=== PATIENT | male | born 1985 | race African-American/Black ===

== ENCOUNTER 2022-09-25 20:22 | Emergency (ER) | payer SELFPAY ==
--- NOTE | ~2022-09-25 | XR_ITS ---
EXAMINATION: XR TIBIA AND FIBULA, LEFT CLINICAL INFORMATION: Pain COMPARISON: None TECHNIQUE: AP and lateral views of the left tibia and fibula were obtained. FINDINGS: No acute fracture or dislocation. Soft tissues are unremarkable. Visualized joint spaces are maintained. Ankle mortise is congruent. No tibiotalar joint effusion. XR/XR tibia fibula LT 2V IMPRESSION: No acute osseous abnormality.
--- NOTE | ~2022-09-25 | US_ITS ---
EXAMINATION: US extremity nonvascular gallegos CLINICAL INFORMATION: Reason for Exam possible gastroc rupture on the L COMPARISON: None. TECHNIQUE: Targeted ultrasound of the posterior left calf was performed utilizing a high frequency linear array transducer. FINDINGS: No interruption of gastrocnemius muscle fibers identified. No intramuscular fluid collection/hematoma or perimuscular fluid/edema identified. US/US extremity nonvascular gallegos IMPRESSION: No sonographic evidence of muscle tear or hematoma. If persistent clinical concern, consider MRI as felt clinically necessary.
[2022-09-25 20:23] VITALS: BP 140/81; PULSE 74; RESP 20; TEMP 36.8; O2SAT 95; BMI 39.0
--- NOTE | 2022-09-25 20:25 | ED.GENADULT ---
HPI - General Adult General Chief complaint: Extremity Injury, Lower <ALEENA Somers - Last Filed: 09/25/22 20:26> Stated complaint: Calf injury <ALEENA Somers - Last Filed: 09/25/22 20:26> Time Seen by Provider: 09/25/22 21:26 <ALEENA Somers - Last Filed: 09/25/22 20:26> Source: patient <Gabi Grullon MD - Last Filed: 09/25/22 22:01> Mode of arrival: wheelchair <Gabi Grullon MD - Last Filed: 09/25/22 22:01> Limitations: no limitations <Gabi Grullon MD - Last Filed: 09/25/22 22:01> History of Present Illness HPI narrative: Patient comes to the emergency room complaining of left calf pain. Patient states that prior to arrival, he was playing basketball, sprinting, states that he heard a loud popping noise coming from his calf. Since then, patient has not been able to bear weight on his left leg. Patient states that he has crutches and has been using them since this happened earlier today. Patient did not take any pain medication. It patient denies falling. Patient states that he has no knee pain or ankle pain. Patient does not have pain while he is laying down resting, but if he tries to bear weight, it is extremely painful <Gabi Grullon MD - Last Filed: 09/25/22 22:01> Related Data Home medications: Previous Rx's Medication Instructions Recorded cyclobenzaprine 10 mg tablet 10 mg PO TID PRN muscle spasm #10 09/25/22 tabs ibuprofen 600 mg tablet 600 mg PO Q8H PRN pain #20 tabs 09/25/22 <ALEENA Somers - Last Filed: 09/25/22 20:26> Allergies/adverse reactions: Allergies Allergy/AdvReac Type Severity Reaction Status Date / Time No Known Allergies Allergy Verified 09/25/22 20:28 <ALEENA Somers - Last Filed: 09/25/22 20:26> Review of Systems Review of Systems: Constitutional : No Weight loss, No Fever, No Chills, No Night Sweats, No Fatigue, No Malaise ENT/Mouth : No Hearing loss, No Ear Pain, No Nasal Congestion, No Sinus Pain, No Hoarseness, No sore throat, No Rhinorrhea, No Swallowing Difficulty Eyes: No Eye Pain, No Swelling, No Redness, No Foreign Body, No Discharge, No Vision Changes Cardiovascular : No Chest Pain, No SOB, No Dyspnea on Exertion, No Orthopnea, No Edema, No Palpitations Respiratory : No Cough, No Sputum, No Wheezing, No Smoke Exposure, No Dyspnea Gastrointestinal : No Nausea, No Vomiting, No Diarrhea, No Constipation, No abdominal Pain, No Hematochezia, No Melena Genitourinary : no irregular bleeding, No Dysuria, No Urinary Frequency, No Hematuria, No Urinary Incontinence, No Urgency, No Flank Pain, No Urinary Flow Changes, No Hesitancy Musculoskeletal : Complaining of left-sided calf pain Skin : No Skin Lesions, No rash Neuro : No Weakness, No Numbness, No Paresthesias, No Loss of Consciousness, No Dizziness, No Headache Psych : No Anxiety/Panic, No Depression, No SI/HI/AH/VH, No Social Issues, Heme/Lymph: No Bruising, No Bleeding,No Lymphadenopathy Endocrine : No Polyuria, No Polydipsia, No Temperature Intolerance <Gabi Grullon MD - Last Filed: 09/25/22 22:01> [facility] Social History Social History: Social History Advance Directives: No Advance Directives Information Provided: No <ALEENA Somers - Last Filed: 09/25/22 20:26> Physical Exam ED Vital Signs: Vital Signs - 24 hr 09/25/22 20:23 Temperature 98.3 F Pulse Rate 74 Respiratory Rate 20 Blood Pressure 140/81 H Pulse Oximetry 95 Oxygen Delivery Method Room Air BMI result Body Mass Index 39.0 <ALEENA Somers - Last Filed: 09/25/22 20:26> Vital Signs - 24 hr 09/25/22 20:23 Temperature 98.3 F Pulse Rate 74 Respiratory Rate 20 Blood Pressure 140/81 H Pulse Oximetry 95 Oxygen Delivery Method Room Air BMI result Body Mass Index 39.0 <Gabi Grullon MD - Last Filed: 09/25/22 22:01> Const Other: Appearance: Alert. Oriented X3. No acute distress. Eyes: Pupils equal, round and reactive to light. ENT: Pharynx normal. Neck: Normal inspection. Neck supple. No lymph nodes noted. No crepitus CVS: Normal heart rate and rhythm. Pulses normal. Normal S1 and S2 Respiratory: No respiratory distress. Breath sounds normal. No Wheezing. No rales Abdomen: Soft and nontender. No rigidity. No distention. Skin: Skin warm and dry. Normal skin color. Normal skin turgor. Extremities: No lower extremity edema. Calves are not swollen. Bilateral tian test with normal response. No swelling, no erythema, no discoloration, good pulses Neuro: Oriented X 3. No motor deficit. No sensory deficit. Moving all extremities. No slurred speech. CN 2 through 12 grossly intact Psych: calm, cooperative, normal affect <Gabi Grullon MD - Last Filed: 09/25/22 22:01> Course Course Course Narrative: RME performed by Sarah Brumfield PA-C. Patient states that he was playing basketball 6 hours ago and he believes he ruptured his left calf muscle. Patient denies hitting his head with the incident. Imaging ordered. Patient placed back in the waiting room pending results and room availability. <ALEENA Somers - Last Filed: 09/25/22 20:26> Medical Decision Making Medical Decision Making MDM Narrative: -I discussed the physical exam with the patient, no concern for Achilles tendon rupture. -there is no sonographic evidence of muscle tear or hematoma. -given the patient's history, it is very likely that patient strained a muscle. Discussed with the patient that if the pain does not improve over the next 2-3 days, patient will likely need an MRI, which he will need a referral by Orthopedics or his primary care physician. -patient declined IM Toradol, patient prefers p.o. ibuprofen. -patient already has crutches. Patient's leg was placed in a long posterior splint <Gabi Grullon MD - Last Filed: 09/25/22 22:01> Differential Diagnosis Differential Diagnoses: The differential diagnosis associated with the presentation includes (Hematoma, contusion, Achilles tendon rupture, muscle strain, muscle tear) <Gabi Grullon MD - Last Filed: 09/25/22 22:01> Independent Interpretation I performed an independent interpretation of an: Plain X-Ray (Tibia fibula x-ray interpreted by me: No fracture) <Gabi Grullon MD - Last Filed: 09/25/22 22:01> Radiology Impression Discussion of test interpretation with radiology: I have reviewed the radiologist's reading. <Gabi Grullon MD - Last Filed: 09/25/22 22:01> Radiologist Impression: EXAMINATION: US extremity nonvascular gallegos CLINICAL INFORMATION: Reason for Exam possible gastroc rupture on the L COMPARISON: None. TECHNIQUE: Targeted ultrasound of the posterior left calf was performed utilizing a high frequency linear array transducer. FINDINGS: No interruption of gastrocnemius muscle fibers identified. No intramuscular fluid collection/hematoma or perimuscular fluid/edema identified. US/US extremity nonvascular gallegos IMPRESSION: No sonographic evidence of muscle tear or hematoma. If persistent clinical concern, consider MRI as felt clinically necessary. No acute fracture or dislocation. Soft tissues are unremarkable. Visualized joint spaces are maintained. Ankle mortise is congruent. No tibiotalar joint effusion. XR/XR tibia fibula LT 2V IMPRESSION: No acute osseous abnormality. <Gabi Grullon MD - Last Filed: 09/25/22 22:01> Discharge Plan Discharge Clinical Impression: Strain of calf muscle <ALEENA Somers - Last Filed: 09/25/22 20:26> Patient Disposition: Home, Self-Care <ALEENA Somers - Last Filed: 09/25/22 20:26> Instructions: Muscle Strain (ED), R.I.C.E. Treatment (ED) <ALEENA Somers - Last Filed: 09/25/22 20:26> Additional Instructions: Please follow-up with your primary care physician tomorrow. Please call orthopedics schedule an appointment. If you have any worsening or new symptoms, please return to the emergency room or call 911 <ALEENA Somers - Last Filed: 09/25/22 20:26> Prescriptions: New ibuprofen 600 mg tablet 600 mg PO Q8H PRN (Reason: pain) Qty: 20 0RF cyclobenzaprine 10 mg tablet 10 mg PO TID PRN (Reason: muscle spasm) Qty: 10 0RF <ALEENA Somers - Last Filed: 09/25/22 20:26> Referrals: Sylvia Cline PA-C [[facility] [employer]] - 09/27/22 <ALEENA Somers - Last Filed: 09/25/22 20:26> Stand Alone Forms: Work/School Release <ALEENA Somers - Last Filed: 09/25/22 20:26>
[2022-09-25] MEDS: Ibuprofen 600 MG TABLET PO (22:09)
--- NOTE | 2022-09-25 22:25 | PC.NURSE ---
pt medicated with IBU 600 per order
== END 2022-09-25 22:26 | disposition home or self-care (01) ==
PROVIDERS: Emergency Provider Emergency Medicine
DX: S86.812A Strain of other muscle(s) and tendon(s) at lower leg level, left leg, initial encounter (principal); X50.9XXA Other and unspecified overexertion or strenuous movements or postures, initial encounter; M79.662 Pain in left lower leg; Y93.67 Activity, basketball; Y92.310 Basketball court as the place of occurrence of the external cause; Y99.9 Unspecified external cause status
CPT/HCPCS: 73590; 76882; 99282; 99284